=== PATIENT | female | born 1995 | race Caucasian/White ===

== ENCOUNTER 2017-05-03 13:33 | Emergency (ER) | payer MEDICAID ==
[~2017-05-03] VITALS: Ht 167.6 cm; Wt 90.0 kg
[2017-05-03] MEDS ORDERED: IBUPROFEN 600MG TABLET PO ONE (14:45)
[2017-05-03 17:52] VITALS: BP 134/84
== END 2017-05-03 17:54 | disposition home or self-care (01) ==
LOC: ER 14:09
DX: S82.002A Unspecified fracture of left patella, initial encounter for closed fracture (principal); W01.0XXA Fall on same level from slipping, tripping and stumbling without subsequent striking against object, initial encounter; Y93.89 Activity, other specified; Y92.89 Other specified places as the place of occurrence of the external cause; Y99.8 Other external cause status
CPT/HCPCS: 73562; 99284; L1830; Z7610

== ENCOUNTER 2021-08-11 09:20 | Emergency (ER) | payer MEDICAID ==
[~2021-08-11] VITALS: Ht 175.3 cm; Wt 127.2 kg
[2021-08-11] MEDS ORDERED: KETOROLAC 30MG/ML VIAL IV STA (10:56)
[2021-08-11] MEDS ORDERED: METOCLOPRAMIDE HCL 10MG/2ML VIAL IV ONE (11:00)
[2021-08-11] MEDS ORDERED: SODIUM CHLORIDE 0.9% 1,000 ML IV ONE (11:00)
[2021-08-11] MEDS ORDERED: METO-293 PO (12:42)
[2021-08-11] MEDS ORDERED: TOPUD PO (12:42)
[2021-08-11 13:56] VITALS: BP 140/88
== END 2021-08-11 14:01 | disposition home or self-care (01) ==
LOC: ER 09:20
DX: R51.9 Headache, unspecified (principal); I49.8 Other specified cardiac arrhythmias; Z98.890 Other specified postprocedural states
CPT/HCPCS: 82962; 93005; 96361; 96374; 96375; 99284; J1885; J2765; J7030; Z7610